=== PATIENT | male | born 2000 | race Hispanic/Latino ===

== ENCOUNTER → 2025-01-25 | Outpatient (CLI) | payer MEDICAID ==
[2025-01-25 17:12] LABS: APPEARANCE,URINE CLEAR (CLEAR); GLUCOSE, URINE (UA) NEGATIVE (NEGATIVE); LEUKOCYTE ESTERASE ,URINE NEGATIVE Leu/uL (NEGATIVE); NITRATE,URINE NEGATIVE (NEGATIVE); OCCULT BLOOD,URINE NEGATIVE (NEGATIVE)
[2025-01-25 17:13] LABS: ADD UA MICROSCOPIC NO
== END | disposition home or self-care (01) ==
LOC: LAB 16:55
PROVIDERS: ATTEND Psychiatry & Neurology Vascular Neurology
DX: N39.0 Urinary tract infection, site not specified (principal)
CPT/HCPCS: 81003